=== PATIENT | male | born 1975 | race Caucasian/White ===

== ENCOUNTER 2023-08-15 07:07 | Day surgery (SDC) | payer OTHER, SELFPAY ==
[2023-07-05 12:17] VITALS: BMI 24.3
[2023-07-31 10:40] VITALS: BMI 24.8
[2023-08-15 07:51] VITALS: BP 140/100; PULSE 60; RESP 18; TEMP 36.4; O2SAT 99; BMI 24.7
--- NOTE | 2023-08-15 08:20 | P.HP_ITS ---
History of Present Illness History of Present Illness Consent: Risks, benefits, and alternatives have been discussed and questions answered. Patient agrees to proceed with procedure. Chief complaint: positive cologuard test Narrative: Amadou Rodriguez is a 47 year old male presents for screening colonoscopy. Patient's current weight appetite and bowel are normal. Patient denies abdominal pain. The patient is found to have positive Cologuard test. Repeat s [place] does report an occasional bright red blood per rectum with wiping. Review of Systems Review of Systems: Review of systems noncontributory. [facility] Surgical History Surgical History (Updated 08/15/23 @ 08:21 by Caesar Penny MD) History of lumbar surgery Family History Family History (Updated 09/28/16 @ 11:18 by DOCTOR UNKNOWN) Father Diabetes mellitus Hypertension Family history of elevated blood lipids Other Family history of allergic disorder Family history of cardiovascular disease Family history of malignant neoplasm Social History Social History Smoking status: Never smoker Smoking end date: 07/01/05 Alcohol intake: current Alcohol use details: 2-3x per week Substance use: never Substance use type: does not use Living arrangements: with family Spiritual care concerns: No Meds Home Medications and Allergies Home Medications Medication Instructions Recorded Confirmed Type No Home Medications 08/15/23 08/15/23 History Allergies Allergy/AdvReac Type Severity Reaction Status Date / Time No Known Allergies Allergy Verified 08/15/23 07:41 Vital Signs Vital Signs - 24 hr 08/15/23 07:51 Temperature 97.6 F Pulse Rate 60 Respiratory Rate 18 Blood Pressure 140/100 H Pulse Oximetry 99 Oxygen Delivery Room Air Exam Narrative: Physical exam reveals patient to be alert. Vital signs stable. HEENT exam is unremarkable. Patient is anicteric. Lungs are clear to auscultation and percussion. Heart is without murmur or extra sounds. Abdomen bowel sounds are present soft nontender with no organomegaly. Digital external rectal exam is normal. Assessment and Plan Assessment and plan (1) Positive colorectal cancer screening using Cologuard test: Code(s): R19.5 - Other fecal abnormalities Status: Acute Assessment and Plan: Found to have positive Cologuard test. Plan for screening colonoscopy for this reason.
--- NOTE | 2023-08-15 08:20 | P.PNAN_ITS ---
Anes - Initial Pre Proc Eval Procedure: Operation Date: 08/15/23 09:00 Proposed Procedures p Diagnostic Colonoscopy - Dallas Mak MD Date/Time: 08/15/23 08:20 Surgeon: Dallas Mak MD Pre Op Diagnosis: positive cologuard test Patient Data Age: 47 Gender: M Height: 1.96 m Weight: 94.4 kg Last Vital Signs Temp 36.4 C 08/15/23 07:51 Pulse 60 08/15/23 07:51 Resp 18 08/15/23 07:51 BP 140/100 H 08/15/23 07:51 Pulse Ox 99 08/15/23 07:51 O2 Del Method Room Air 08/15/23 07:51 Allergies Allergy/AdvReac Type Severity Reaction Status Date / Time No Known Allergies Allergy Verified 08/15/23 07:41 Home Medications Medication Instructions Recorded Confirmed Type No Home Medications 08/15/23 08/15/23 History Patient hx anesthesia problems: none Family hx anesthesia problems: none Results Review: All pre-operative results and documents have been reviewed as part of the pre- operative evaluation. [facility] Surgical History Surgical History History of lumbar surgery Family History Family History Father Diabetes mellitus Hypertension Family history of elevated blood lipids Other Family history of allergic disorder Family history of cardiovascular disease Family history of malignant neoplasm Social History Social History Smoking status: Never smoker Smoking end date: 07/01/05 Alcohol intake: current Alcohol use details: 2-3x per week Substance use: never Substance use type: does not use Living arrangements: with family Spiritual care concerns: No Anes - Eval Final PreProcedure Day of Procedure 08/15/23 08:20 Patient weight: normal Heart: regular rate and rhythm Lungs: clear to auscultation Airway: Mallampati scale class II Neurological: alert and oriented Last oral intake: >/= 8 hours ASA classification: I Emergent: no Anesthetic plan: proceed Anesthesia type and monitoring: general GIVS and standard monitoring Results Review: All pre-operative results and documents have been reviewed as part of the pre- operative evaluation. Informed Consent: The patient's anesthetic plan and its attendant risks and benefits were discussed with the patient/family/POA. Questions were solicited and answers provided to the satisfaction of the patient/family/POA.
[2023-08-15] MEDS: LACTATED RINGERS 1,000 ML 150 ML IV CONT (08:28)
[2023-08-15 09:15] VITALS: BP 128/92; PULSE 75; RESP 16; O2SAT 97
[2023-08-15 09:25] VITALS: BP 129/95; PULSE 69; RESP 16; O2SAT 99
[2023-08-15 09:35] VITALS: BP 135/95; PULSE 62; RESP 16; O2SAT 100
--- NOTE | 2023-08-15 09:48 | WPDANESPN ---
Anes - Prog Note Post-Op Date/Time: 08/15/23 09:48 Cardiovascular status: normal Respiratory status: normal Airway patency: baseline Mental status: baseline Post-Op hydration status: normal Vital Signs: Last Vital Signs Temp 36.4 C 08/15/23 07:51 Pulse 62 08/15/23 09:35 Resp 16 08/15/23 09:35 BP 135/95 H 08/15/23 09:35 Pulse Ox 100 08/15/23 09:35 O2 Del Method Room Air 08/15/23 09:35 Pain Score (VAS): 0/10 I/O: Intake & Output 08/14/23 08/15/23 08/15/23 23:59 07:59 15:59 Intake Total 600 Balance 600 Patient Feedback: Patient satisfied with anesthetic care.
== END 2023-08-15 09:44 | disposition home or self-care (01) ==
PROVIDERS: PCP Physician Assistant; Visit Provider Internal Medicine Gastroenterology
PROC: 0DJD8ZZ Inspection of Lower Intestinal Tract, Via Natural or Artificial Opening Endoscopic (ICD-10-PCS; CPT 45378; principal; 2023-08-15 09:00)
DX: R19.5 Other fecal abnormalities (principal); K64.8 Other hemorrhoids
CPT/HCPCS: 45378

== ENCOUNTER 2023-11-11 15:24 | Outpatient (CLI) | payer OTHER, SELFPAY ==
--- NOTE | ~2023-11-11 | XR_ITS ---
EXAM: XR cervical spine min 6V DATE: 11/11/2023 15:56 HISTORY: possible disc injury and instability . COMPARISON: None available. FINDINGS: Craniocervical association and atlantoaxial joint are aligned. No prevertebral soft tissue swelling. Mild degenerative change at the atlantodental interval. Reversed lordosis centered at C4-5 . 2 mm anterolisthesis at C4-5 that reduces in extension. Mild disc space narrowing and marginal oste ophytosis at C5-6. A minimal 1-2 mm anterolisthesis develops at C5-6 in flexion. Mild facet sclerosis and hypertrophy at C7-T1. Patent neural foramina. IMPRESSION: Mild dynamic listheses at C4-5 and C5-6. Mild degenerative disc disease at C5-6. Mild fac et arthropathy at C7-T1. Reviewed, dictated and finalized at location K. IMPRESSION: Mild dynamic listheses at C4-5 and C5-6. Mild degenerative disc dis ease at C5-6. Mild facet arthropathy at C7-T1.
--- NOTE | ~2023-11-11 | XR_ITS ---
EXAM: XR shoulder LT min 2V DATE: 11/11/2023 15:56 HISTORY: possible disc injury and instability . COMPARISON: None available. FINDINGS: Normal mineralization. No fracture or dislocation. No lytic or blastic lesion. Mild AC kennedi nt hypertrophy. No erosion or periosteal change. Soft tissues within normal limits. IMPRESSION: Mild AC joint osteoarthritis. Reviewed, dictated and finalized at location K.
== END 2023-11-11 15:25 ==
PROVIDERS: PCP Chiropractor; Visit Provider Chiropractor
DX: M25.312 Other instability, left shoulder (principal); M50.322 Other cervical disc degeneration at C5-C6 level; M19.012 Primary osteoarthritis, left shoulder
CPT/HCPCS: 72052; 73030